=== PATIENT | female | born 1990 | race Caucasian/White ===

== ENCOUNTER 2017-03-29 21:33 | Emergency (ER) | payer MEDICAID ==
[2017-03-29 21:49] VITALS: BMI 24.4
[2017-03-29 21:59] LABS: URINE BACTERIA RARE (<OCC); URINE BILIRUBIN NEGATIVE (NEGATIVE); URINE BLOOD NEGATIVE (NEGATIVE); URINE COLOR Straw (YELLOW); URINE GLUCOSE (UA) NORMAL (Normal); URINE KETONE NEGATIVE (NEGATIVE); URINE LEUKOCYTE ESTERASE TRACE Leu/uL (Negative); URINE PROTEIN NEGATIVE (NEGATIVE); URINE UROBILINOGEN NORMAL mg/dL (0.2-1.0); WBC URINE 4 /hpf (0-5)
--- NOTE | 2017-03-29 22:28 | OBHP ---
Datetime: 03/29/2017 22:21 IP Adm Impression: , intrauterine IP Chief Complaint Other: c/o pain in the abdomen Admit Comment, IP Provider: at 29weeks came with abdominal pain started in am, comes and goes, no dysuria, no vb, lof,+fm. obhx 1 x pmh den med pnv all nkda psh den soch de ve closed ua neg a/p at 29weeks r/o uti ua neg will give her ivf dc home po hyra ptl given f/u in clinic in 2-3 days Pelvic Type - PN: Adequate Extremities - PN: Normal Abdomen - PN: Normal Back - PN: Normal Breast - PN: Not Done Lungs - PN: Normal Heart - PN: Not Done Thyroid - PN: Normal Neurologic - PN: Normal HEENT - PN: Normal General - PN: Normal FHR - Baseline A Provider: 130 Contraction Comments Provider: occ Comments, ACOG Physical Exam: gravid,non tender ext no edema,no calf ten Vital Signs Provider: Reviewed; Within Normal Limits NICHD Variability Prov Fetus A: Moderate 6-25bpm NICHD Accel Fetus A IP Provider: [id number] FHR Category Provider Fetus A: Category I Dilatation, Provider: 0 Effacement, Provider: 0 Station, Provider: -3 Genitourinary Exam: Normal DTRs - PN: Normal
[2017-03-29] MEDS ORDERED: Lactated Ringer's 1,000 ML IV SCH (22:30)
[2017-03-30 03:42] VITALS: BP 117/59; PULSE 79; RESP 18; TEMP 97.8
== END 2017-03-29 23:41 | disposition home or self-care (01) ==
LOC: C.EROB 21:33
DX: O26.893 Other specified pregnancy related conditions, third trimester (principal); R10.9 Unspecified abdominal pain; Z3A.29 29 weeks gestation of pregnancy
CPT/HCPCS: 81001; 99283; J7120

== ENCOUNTER 2017-06-04 04:49 | Inpatient (IN) | payer MEDICAID ==
[2017-06-04] MEDS ORDERED: Penicillin G 5 Million Unit Vial IVPB ONE (04:54)
--- NOTE | 2017-06-04 04:59 | OBADHP ---
Datetime: 06/04/2017 04:52 Admit Comment, IP Provider: chief complaint-contractions HPI at 38 weeks and 4 days with c/o contractions.patient does not remember exactly when her w ater broke.deies vaginal bleeding course uncomplicated a sper patoent PMH demoes PSH denies OBGYN HX ; NVDX1 Social hx denies tobacco,alcohol or illciit drug use Exam see exam section A/P 26 y/o at 38.4 wga in labor. -admit -see orders -anticipate nvd Extremities - PN: Normal Abdomen - PN: Normal Back - PN: Normal Lungs - PN: Normal Heart - PN: Normal Neurologic - PN: Normal General - PN: Normal Weight - Estimated: 3200 Presentation-Admit: Vertex Gestation - Est Wks by US: 38.4 IP Hx Assessment: The History has been Reviewed and is Current Vital Signs Provider: Reviewed IP Chief Complaint: Uterine contractions FHR Category Provider Fetus A: Category II Dilatation, Provider: 10 Effacement, Provider: 100 Station, Provider: 0 Genitourinary Exam: Normal DTRs - PN: Normal EGA AdmitDate IP: 38.4 IP Adm Impression: Term, intrauterine ; Active labor IP Admit Plan: Admit to unit; Initiate labor protocol Datetime: 03/29/2017 22:21 IP Chief Complaint Other: c/o pain in the abdomen Pelvic Type - PN: Adequate Breast - PN: Not Done Thyroid - PN: Normal HEENT - PN: Normal FHR - Baseline A Provider: 130 Contraction Comments Provider: occ Comments, ACOG Physical Exam: gravid,non tender ext no edema,no calf ten NICHD Variability Prov Fetus A: Moderate 6-25bpm NICHD Accel Fetus A IP Provider: [id number]
[2017-06-04] MEDS ORDERED: Benzocaine/Menthol 20%-0.5% Topical Spray (60 ml) TOP PRN (05:36)
[2017-06-04] MEDS ORDERED: Oxycodone/Acetaminophen 5/325 mg Tab PO PRN ×2 (05:36)
--- NOTE | 2017-06-04 05:36 | OBDS ---
DELIVERY PERSONNEL Delivery Doctor: Inga Chung MD [place] Guide: Liliam Hunter RN MATERNAL INFORMATION Delivery Anesthesia: None Medications in Delivery: pitocin 20 units Estimated Blood Loss (ml): 300 Placenta Cultured: No Maternal Complications: None RN Comments: to a live baby girl with 9/9 Provider Comments: of a female infant.nuchalx1 around neck loose and reduced on perineum body and shoulders delivered without difficulty cord clamped and cut.cord blood collected placenta sponatneously delivered perineum intact apgars 9/9 at 1 and 5 min of life LABOR SUMMARY EDC: 06/14/2017 00:00 No. Babies in Womb: 1 Attempted: No Labor Anesthesia: None LABOR INFORMATION Reason for Induction: Not Applicable Onset of Labor: 06/04/2017 02:00 Complete Dilatation: 06/04/2017 04:45 Oxytocin: N/A Group B Beta Strep: Done, Result Unknown Antibiotics # of Doses: 1 Antibiotics Time of Last Dose: 0450 Steroids Given: None Reason Steroids Not Administered: Not Applicable MEMBRANES Membranes Rupture Method: Spontaneous Amniotic Fluid Color: Clear STAGES OF LABOR Stage 1 hrs: 2 Stage 1 min: 45 Stage 2 hrs: 0 Stage 2 min: 24 Stage 3 hrs: 0 Stage 3 min: 2 Total Time in Labor hrs: 3 Total Time in Labor min: 11 VAGINAL DELIVERY Episiotomy: None Laceration Extension: N/A Laceration Type: None Laceration Repair: Not Applicable Initial Vag Sponge Count: 10 Final Vag Sponge Count: 10 Initial Vag Sharps Count: 0 Final Vag Sharps Count: 0 Sponge Count Correct: N/A Sharps Count Correct: N/A BABY A INFORMATION Infant Delivery Date/Time: 06/04/2017 05:09 Method of Delivery: Vaginal Born in Route : No : N/A Forceps: N/A Vacuum Extraction: N/A Shoulder Dystocia : No SHOULDER DYSTOCIA BABY A Infant Delivery Date/Time: 06/04/2017 05:09 PRESENTATION/POSITION BABY A Presentation: Cephalic Cephalic Presentation: Vertex Vertex Position: Left Occipital Anterior Breech Presentation: N/A PLACENTA INFORMATION BABY A Placenta Delivery Time : 06/04/2017 05:11 Placenta Method of Delivery: Spontaneous Placenta Status: Delivered SCORES BABY A Heart Rate 1 min: >100 bpm Resp Effort 1 min: Good Cry Reflex Irritability 1 min: Cough or Sneeze or Pulls Away Muscle Tone 1 min: Active Motion Color 1 min: Body [place], Extremities Blue SCORE 1 MIN: 9 Heart Rate 5 min: >100 bpm Resp Effort 5 min: Good Cry Reflex Irritability 5 min: Cough or Sneeze or Pulls Away Muscle Tone 5 min: Active Motion Color 5 min: Body [place], Extremities Blue SCORE 5 MIN: 9 INFORMATION BABY A Gestational Status: Term Infant Outcome : Liveborn Infant Condition : Stable Sex: Female IDENTIFICATION/MEDS BABY A ID Band Location: Left Leg; Left Arm Sensor Applied: Yes Sensor Location : Cord Clamp WEIGHT/LENGTH BABY A Infant Birthweight (gms): 3045 Infant Weight (lb): 6 Infant Weight (oz): 11 Length Inches: 19.00 Length cms: 48.3 CORD INFORMATION BABY A No. Cord Vessels: 3 Nuchal Cord : Around Neck x1, Loose Cord Blood Taken: Yes Infant Suction: None ASSESSMENT BABY A Complications: None Physical Findings at Delivery: Within Normal Limits Infant Respirations: Appears Normal Rn Physician Office/ALS Called : No Infant Care By: Dr. Thacker Transferred To: Remains with Mother
[2017-06-04 06:54] LABS: BASO # 0.1 K/uL (0.0-0.2); BASO % 0.5 % (0.0-2.0); EOS % 0.4 % (0.0-4.0); HEMATOCRIT 35.1 % (34.0-47.0); LYMPH # 2.4 K/uL (1.0-4.3); LYMPH % 23.8 % (20.0-40.0); MEAN CELL VOLUME 84.8 fL (81.0-99.0); MEAN CORPUSCULAR HEMOGLOBIN 28.7 pg (27.0-31.0); MEAN CORPUSCULAR HGB CONC 33.8 g/dL (33.0-37.0); MEAN PLATELET VOLUME 8.2 fL (7.2-11.7); MONO # 0.5 K/uL (0.0-0.8); MONO % 5.1 % (0.0-10.0); NRBC % 0.1 % (0.0-2.0); WHITE BLOOD COUNT 10.2 K/uL (4.8-10.8)
[2017-06-04 06:59] LABS: RBC URINE 582 /hpf (0-3); URINE BACTERIA RARE (<OCC); URINE BILIRUBIN NEGATIVE (NEGATIVE); URINE BLOOD 3+ (NEGATIVE); URINE COLOR Yellow (YELLOW); URINE GLUCOSE (UA) NORMAL (Normal); URINE KETONE NEGATIVE (NEGATIVE); URINE LEUKOCYTE ESTERASE 3+ Leu/uL (Negative); URINE PROTEIN NEGATIVE (NEGATIVE); URINE UROBILINOGEN NORMAL mg/dL (0.2-1.0); WBC URINE 52 /hpf (0-5)
[2017-06-04 07:04] LABS: CHLORIDE 101 mmol/L (98-107); SODIUM 134 mmol/L (132-148)
[2017-06-04 07:05] LABS: POTASSIUM 3.9 mmol/L (3.6-5.2)
[2017-06-04 07:07] LABS: ALB/GLOB RATIO 0.9 (1.0-2.1); ALKALINE PHOSPHATASE 170 U/L (38-126); AST/SGOT 18 U/L (14-36); BILIRUBIN,TOTAL 0.3 mg/dL (0.2-1.3); CARBON DIOXIDE 19 mmol/L (22-30); GFR AFRICAN-AMERICAN > 60; TOTAL PROTEIN 7.3 g/dL (6.3-8.3)
[2017-06-04 07:08] LABS: ALT/SGPT 35 U/L (9-52); BLOOD UREA NITROGEN 5 mg/dL (7-17); GLUCOSE,RANDOM 82 mg/dL (65-105)
[2017-06-04] MEDS: Multiple Vitamins Tab PO SCH (10:09)
--- NOTE | 2017-06-04 19:16 | RAD ---
HISTORY: positive PPD COMPARISON: Comparison is made to 06/26/2013 TECHNIQUE: Chest PA and lateral FINDINGS: LUNGS: No active pulmonary disease. PLEURA: No significant pleural effusion identified. No pneumothorax apparent. CARDIOVASCULAR: Normal. OSSEOUS STRUCTURES: No significant abnormalities. VISUALIZED UPPER ABDOMEN: Normal. OTHER FINDINGS: None. IMPRESSION: No active disease.
--- NOTE | 2017-06-05 07:35 | OBPPN ---
Datetime: 06/05/2017 07:33 PP Pain Prov: Within normal limits PP Nausea Prov: Denies PP Flatus Prov: Yes PP Abdomen/Uterus Prov: Normal PP Extremities Prov: Normal PP Comments Phys Exam Prov: fudus belowe umbicus ext mild edema,no calf ten PP Impression Prov: Normal progression PP Plan Prov: Continue present management PP Progress Note Prov: pt was seen at bed side, pain under control, no n/v, tolerating deit,voiding, min lochia, flatus + ppd#1 s/p cont pp care cont pain manage cbc Vital Signs Provider PP: Reviewed; Within Normal Limits
[2017-06-05 09:05] LABS: BASO # 0.1 K/uL (0.0-0.2); BASO % 0.6 % (0.0-2.0); EOS # 0.1 K/uL (0.0-0.7); EOS % 0.7 % (0.0-4.0); HEMATOCRIT 30.6 % (34.0-47.0); LYMPH # 2.4 K/uL (1.0-4.3); LYMPH % 19.6 % (20.0-40.0); MEAN CORPUSCULAR HEMOGLOBIN 28.5 pg (27.0-31.0); MEAN CORPUSCULAR HGB CONC 33.5 g/dL (33.0-37.0); MEAN PLATELET VOLUME 7.8 fL (7.2-11.7); MONO # 0.4 K/uL (0.0-0.8); MONO % 3.1 % (0.0-10.0); RED CELL DISTRIBUTION WIDTH 14.2 % (11.5-14.5); WHITE BLOOD COUNT 12.2 K/uL (4.8-10.8)
[2017-06-05] MEDS: Multiple Vitamins Tab PO SCH (09:29)
[2017-06-05 16:05] VITALS: O2SAT 99
[2017-06-06 08:08] VITALS: BP 110/63; PULSE 79; RESP 18; TEMP 97.5
[2017-06-06] MEDS: Multiple Vitamins Tab PO SCH (09:55)
[2017-06-06] MEDS ORDERED: Influenza Vaccine 60 mcg/0.5 mL SYR (4YR UP) IM ONE (09:57)
--- NOTE | 2017-06-06 22:15 | OBPPN ---
Datetime: 06/06/2017 08:01 PP Pain Prov: Within normal limits PP Nausea Prov: Denies PP Flatus Prov: Yes PP BM Prov: Yes PP Heart Prov: Normal PP Lungs Prov: Normal PP Abdomen/Uterus Prov: Normal PP Lochia Prov: Normal PP Vulva/Perineum Prov: Normal PP CVA Tenderness Prov: Normal PP Extremities Prov: Normal PP C/S Incision Prov: Not Applicable PP Progress Prov: Normal PP Impression Prov: Normal progression PP Plan Prov: Continue present management PP Progress Note Prov: Patient was seen and examined at bedside in the AM. Patient states she curre ntly does not have pain She states she has minimial vaginal bleeding. Patient denies nausea or vomit ing and states she is eating well. Patient states she is breast feeding. Objective: B/P: 110/76 H/H (06/05): 10.2/30.6 H/H on admission (06/04): 11.8/35.1 Awake, Alert and Oriented x3 Abdomen: non-tender, soft, fundus is firm about 1 finger below umbilicus Lower Extremities: non-tender, non-swollen A/P: 26 year old at 38 weeks 4 days delivered vaginally on 06/04. 1.) Continue pain managment 2.) Encourage breast feeding 3.) Encourage ambulation 4.) Discussed the various forms of contraception post patient states she will probably like to use the pill but will discuss with her [employer] 5.) Disposition to be discharged home today 06/06. Discussed with patient nothing in the vagina fo r 6 weeks. To use Motrin for pain as needed. Patient to follow up with [employer] in 6 weeks. Case discussed with Dr. Sheldon Suero DO PGY-1 Patient examined with resident agree with resident exam, assessment and plan Cassie Vital Signs Provider PP: Reviewed; Within Normal Limits
--- NOTE | 2017-06-06 22:19 | OBDCSUM ---
Datetime: 06/06/2017 07:57 Discharge Comment, Provider: go to er if you have fever, severe pain, hevay bleeidng or any other pr oblems Discharge Diagnosis Prov Other: s/p vaginal delivery
== END 2017-06-06 11:55 | disposition home or self-care (01) | DRG 373 ==
LOC: C.L&DOP 04:49 → C.EROB 04:49 → C.4LDOR 06:18 → C.4D 06:50 → C.4M 09:04
PROVIDERS: ADMIT Student in an Organized Health Care Education/Training Program; ATTEND Student in an Organized Health Care Education/Training Program
PROC: 10E0XZZ Delivery of Products of Conception, External Approach (ICD-10-PCS; principal; 2017-06-04)
DX: O69.81X0 Labor and delivery complicated by cord around neck, without compression, not applicable or unspecified (principal); Z3A.38 38 weeks gestation of pregnancy; Z37.0 Single live birth